=== PATIENT | male | born 1950 | race Caucasian/White ===

== ENCOUNTER → 2018-05-03 | Outpatient (REF) | payer MEDICARE, BC ==
[2018-05-03 09:16] LABS: HEMATOCRIT 51.3 % (39.0-50.0); HEMOGLOBIN 16.5 g/dl (14.0-18.0); MEAN CELL VOLUME 86.1 fL CALC (80.0-100.0); MEAN CORPUSCULAR HGB 27.7 pG CALC (26.0-32.0); MEAN CORPUSCULAR HGB CONC 32.2 g/L CALC (32.0-36.0); RED BLOOD COUNT 5.96 mill/uL (4.70-6.10); RED CELL DISTRI WIDTH 13.4 % (11.5-15.5)
[2018-05-03 09:41] LABS: ALBUMIN 3.8 g/dL (3.2-5.0); ALKALINE PHOSPHATASE 50 u/l (38-126); ANION GAP 13 (6-22 (CALC)); BILIRUBIN, TOTAL 0.5 mg/dL (0.0-1.4); BUN 13 mg/dL (8-23); BUN/CREATININE RATIO 14 (12-20 (CALC)); CALCULATED LDLCHOLESTEROL 100 mg/dL (62-129 (CALC)); CARBON DIOXIDE 26 mmol/l (22-30); CHLORIDE 106 mmol/l (95-108); CHOLESTEROL HDL RATIO 3.9 (<4.4 (CALC)); GFR > 60 ML/MIN (>=60 (CALC)); GFR FOR AFR.AMER. > 60 ML/MIN (>=60 (CALC)); HDL CHOLESTEROL 44 mg/dL (>=40); POTASSIUM 4.5 mmol/l (3.5-5.1); SGOT/AST 17 u/l (19-48); SODIUM 140 mmol/l (137-146); TOTAL CHOLESTEROL 173 mg/dl (0-199); TOTAL TRIGLYCERIDES 143 mg/dl (30-149); VLDL CHOLESTROL 29 mg/dl (4-45 (CALC))
[2018-05-03 10:11] LABS: TSH, 3RD GENERATION 2.97 uIU/mL (0.47 - 4.68)
== END | disposition home or self-care (01) ==
LOC: LAB 08:19
PROVIDERS: ATTEND Nurse Practitioner Family
DX: I10 Essential (primary) hypertension (principal)

== ENCOUNTER 2024-05-08 21:19 | Emergency (ER) | payer MEDICARE ==
[~2024-05-08] VITALS: Ht 167.6 cm; Wt 81.6 kg
[2024-05-08] MEDS ORDERED: LISINOPRIL20 M1 PO (21:47)
[2024-05-08] MEDS ORDERED: OMEPRAZOLE DR40 MG PO (21:48)
[2024-05-08] MEDS ORDERED: MULTI VIT PO (21:48)
[2024-05-08] MEDS ORDERED: LIDOcaine HCl 1% (Local Anesth.) 20 ML VIAL IM STA (22:01)
[2024-05-08] MEDS ORDERED: cefTRIAXone SODIUM 1 GM/VIAL SDV IM ONE (22:05)
[2024-05-08] MEDS ORDERED: Diph, Acellular Pertussis, Tet 0.5 ML/VIAL (Tdap) SDV IM ONE (22:05)
[2024-05-08] MEDS ORDERED: IBUPROFEN 800 MG/TAB PO ONE (23:05)
[2024-05-08] MEDS ORDERED: ACETAMINOPHEN 500 MG TAB PO ONE (23:05)
[2024-05-08] MEDS ORDERED: LIDOcaine HCl 1% (Local Anesth.) 20 ML VIAL STI ONE (23:05)
[2024-05-09] MEDS ORDERED: CEFDINIR300 MG PO (00:18)
[2024-05-09 00:39] VITALS: BP 147/75
== END 2024-05-09 00:39 | disposition home or self-care (01) ==
LOC: ED 21:19
PROC: 0HQFXZZ Repair Right Hand Skin, External Approach (ICD-10-PCS; principal; 2024-05-08)
DX: S61.210A Laceration without foreign body of right index finger without damage to nail, initial encounter (principal); W27.8XXA Contact with other nonpowered hand tool, initial encounter; Y93.89 Activity, other specified; Y92.009 Unspecified place in unspecified non-institutional (private) residence as the place of occurrence of the external cause
CPT/HCPCS: 90715; J0696